=== PATIENT | female | born 1965 | race Caucasian/White ===

== ENCOUNTER 2019-05-31 06:00 | Outpatient (RCR) | payer BC, SELFPAY | END 2019-06-30 00:01 | LOC: GPT 06:00 | PROVIDERS: Family Provider Nurse Practitioner; Visit Provider Nurse Practitioner Family | DX: M25.511 Pain in right shoulder (principal) | CPT/HCPCS: 97110 ×2; 97530 ==

== ENCOUNTER → 2020-09-27 11:00 | Outpatient (BNVA) | payer BC, SELFPAY | PROVIDERS: Visit Provider Nurse Practitioner Family | DX: I10 Essential (primary) hypertension (principal); Z68.41 Body mass index [BMI] 40.0-44.9, adult | CPT/HCPCS: 80053; 80061; 84443 ==

== ENCOUNTER → 2021-08-30 09:11 | Outpatient (BNVA) | payer BC, SELFPAY | PROVIDERS: Visit Provider Nurse Practitioner Family | DX: I10 Essential (primary) hypertension (principal) | CPT/HCPCS: 80053; 80061; 84443; 85025 ==

== ENCOUNTER → 2025-01-26 13:00 | Outpatient (BNVA) | payer OTHER, SELFPAY | PROVIDERS: PCP Family Medicine; Referring Provider Family Medicine; Visit Provider Specialist | DX: G50.0 Trigeminal neuralgia (principal); M79.2 Neuralgia and neuritis, unspecified | CPT/HCPCS: 36415; 80053; 80183; 83036; 84443; 85025 ==